=== PATIENT | female | born 1985 | race Caucasian/White ===

== ENCOUNTER → 2020-01-09 | Outpatient (CLI) | payer OTHER ==
[~2020-01-09] MED LIST: BENTYL 20 MG TA20 M1 PO; NORCO 10-325 T1 EACH; PHENAZOPYRIDIN200 M2 PO; XANAX 0.5 MG0.5 MG
== END ==
LOC: M.RAD 13:28
PROVIDERS: ATTEND Internal Medicine
DX: M25.521 Pain in right elbow (principal)

== ENCOUNTER 2020-02-14 09:39 | Emergency (ER) | payer OTHER ==
[~2020-02-14] VITALS: Ht 162.6 cm; Wt 70.3 kg
[~2020-02-14 09:39] MED LIST changes: -IBUPROFEN 800800 M1 PO; -MEDROLDOSEPACK PO; -TORADOL 10 MG T10 MG PO
[2020-02-14 09:50] VITALS: BP 166/120
[2020-02-14] MEDS ORDERED: IBUPROFEN 800800 M1 PO (09:55)
[2020-02-14] MEDS ORDERED: MEDROLDOSEPACK PO (11:04)
[2020-02-14] MEDS ORDERED: TORADOL 10 MG T10 MG PO (11:04)
== END 2020-02-14 12:25 | disposition home or self-care (01) ==
LOC: M.ERS 09:39
DX: M77.01 Medial epicondylitis, right elbow (principal); G43.909 Migraine, unspecified, not intractable, without status migrainosus; F17.210 Nicotine dependence, cigarettes, uncomplicated; Z88.5 Allergy status to narcotic agent

== ENCOUNTER → 2020-02-14 | Outpatient (CLI) | payer OTHER ==
[~2020-02-14] MED LIST changes: +IBUPROFEN 800800 M1 PO; +MEDROLDOSEPACK PO; +TORADOL 10 MG T10 MG PO
== END ==
LOC: M.MRI 01-25 13:30
PROVIDERS: ATTEND Registered Nurse Diabetes Educator
DX: R60.0 Localized edema (principal); M25.821 Other specified joint disorders, right elbow; R20.2 Paresthesia of skin